=== PATIENT | male | born 1975 | race Hispanic/Latino ===

== ENCOUNTER 2023-03-29 12:09 | Emergency (ER) | payer BC ==
--- OUTSIDE RECORDS SUMMARY | 2023-03-29 12:11 | XMS REPORT | Continuity of Care Document ---
:1975 Author Organization [facility] t Address [address] [place] [address] [address] [place] [address] Care Team Providers Name Role Phone ANNETTE HERNANDEZ Primary Care Physician Unavailable Marlin Attending Clinician Unavailable RADIOLOGY Attending Clinician Unavailable Radiology Attending Clinician Unavailable JERSEY WANG Attending Clinician Unavailable Marlin Admitting Clinician Unavailable ANNETTE HERNANDEZ Admitting Clinician Unavailable Payers Payer Name Policy Type Policy Number Effective Date Expiration Date Tracie parker [employer] [facility] [id number] 2014 00:00:00 [employer] [id number] 2020 00:00:00 Problems Condition Condition Condition Status Onset Resolution Last Treating Co mments Source Name Details Category Date Date Treatment Clinician Date No known No known Disease Unive rs active active ity of problems problems [facility] Allergies, Adverse Reactions, Alerts Allergy Allergy Status Severity Reaction(s) Onset Inactive Treating Comm ents Source Name Type Date Date Clinician NO KNOWN Drug Active Univers ALLERGIE Class ity of S [facility] Social History Social Habit Start Date Stop Date Quantity Comments Source Tobacco use and 2021-05-26 2021-05-26 Never used [facility] exposure 00:00:00 00:00:00 [facility] Sex Ass[birth year] [facility] 00:00:00 00:00:00 [facility] Smoking Status Start Date Stop Date Source Never smoker [facility] Medications Ordered Filled Start Stop Current Ordering Indication Dosage Frequency Signature Comments Components Source Medication Medication Date Date Medication? Clinician (SIG) Name Name No known No Univers medications - ity of 20:35: [place] [facility] Procedures Procedure Date / Time Performing Clinician Source Performed [facility] PATIENT FINANCIAL 2022-04-12 18:42:09 [facility] NO SHOW OR MISSED 2022-04-12 18:41:50 Doctor Katiasscathy, [facility] APPOINTMENT POLICY [facility] ACKNOWLEDGEMENT NOTICE OF PRIVACY 2022-04-12 18:41:30 Doctor Unasscathy, Eduardo [facility] PRACTICES [facility] CONSENT/REFUSAL FOR 2022-04-12 18:41:07 Doctor Unassigned, Unive [facility] DIAGNOSIS AND TREATMENT [facility] ASSIGNMENT OF BENEFITS 2022-04-12 18:40:45 [facility] Encounters Start End Encounter Admission Attending Care Care Encounter Source Date/Time Date/Time Type Type Clinicians Facility Department ID 2022-04-29 2022-04-29 Outpatient Daniel_T VFP [id number] [id number] [facility] 12:45:00 12:45:00 [id number] Family Practic e 2022-04-12 2022-04-12 Outpatient R RADIOLOGY [facility] [id number] Univers 13:39:58 23:59:00 ity of [facility] 2022-04-12 2022-04-12 Hospital Radiology [facility] [id number] Univers 13:39:58 23:59:00 Encounter [place] [id number] ity [facility] [id number] [facility] [id number] [facility] [address] Branch 2022-04-12 2022-04-12 Outpatient R RADIOLOGY [facility] [id number] Univers 00:00:00 00:00:00 [id number] ity of [facility] 2021-05-26 2021-05-26 Outpatient R KATHLEEN, [facility] [id number] Univers 20:20:00 20:20:00 JERSEY montenegro o f [facility] Results This patient has no known results.
[2023-03-29 13:24] LABS: Absolute Lymphocytes (CBC) 2.1 K/uL (0.7-4.9); Lymphocytes % 32.1 % (15.3-44.8); MCV 84.2 fL (80-100); MPV 9.6 fL (7.6-11.3); RBC Red Blood Cell Count 5.34 M/uL (4.33-5.43)
[2023-03-29 13:28] LABS: Specific Gravity 1.016 (1.005-1.030); Urine Bilirubin NEGATIVE (Negative); Urine Blood Negative (Negative); Urine Clarity Clear (Clear); Urine Color Light-Yellow (Yellow); Urine Glucose NEGATIVE (Negative); Urine Protein NEGATIVE (Negative); Urine Urobilinogen Normal (Normal)
[2023-03-29 13:40] LABS: Albumin 4.4 g/dL (3.4-5.0); Bilirubin Total 0.3 mg/dL (0.2-1.0); Protein, Total 8.3 g/dL (6.4-8.2)
--- NOTE | 2023-03-29 13:41 | RAD REPORT ---
EXAM DESCRIPTION: CTSpine Lumbar Wo Con03/29/2023 1:24 pm CLINICAL HISTORY: Back pain COMPARISON: None TECHNIQUE: Computed axial tomography lumbar spine was obtained with coronal and sagittal reconstruct ion. All CT scans are performed using dose optimization technique as appropriate and may include automated exposure control or mA/KV adjustment according to patient size. FINDINGS: No fracture is seen. No dislocation is noted. Small right posterolateral herniated disc is suspected L3-4 Stranding is present within neural foramina bilaterally T11-12 IMPRESSION: Stranding is present within the neural foramina bilaterally T11-12. This is a nonspecifi c finding. If the patient has clinical symptoms to suggest pathology in this region then MRI with con trast would be recommended. Small right posterior-lateral herniated disc L3-4 suspected
[2023-03-29] MEDS ORDERED: KETOROLAC 30 MG/ML INJ ONE (13:55)
[2023-03-29] MEDS ORDERED: ONDANSETRON 4 MG/2 ML VIAL ONE (13:55)
[2023-03-29] MEDS ORDERED: NA CHLORIDE 0.9% 1,000 ML ONE (13:55)
[2023-03-29] MEDS ORDERED: FENTANYL CITR 100 MCG/2 ML ONE (14:10)
[2023-03-29] MEDS ORDERED: dexAMETHasone 10 MG/ML VIAL ONE (14:11)
[2023-03-29] MEDS ORDERED: DIAZEPAM 10 MG/2 ML INJ SYRINGE ONE (14:11)
--- NOTE | 2023-03-29 16:39 | RAD REPORT ---
EXAM DESCRIPTION: MRI - Lumbar Spine Wo Con - 03/29/2023 4:28 pm CLINICAL HISTORY: Back pain/radiculopathy COMPARISON: CT March 29, 2023 TECHNIQUE: Sagittal T1, T2 and STIR weighted sequences were obtained. Axial T1 and T2 sequences were obtained through the lumbar disc levels. FINDINGS: L1-2, L2-3, L4-5 and L5-S1 unremarkable Disc desiccation L3-4. Small right paracentral subligamentous disc herniation thecal sac measures 9.5 millimeters. Neural foramina patent No abnormal signal within the bones IMPRESSION: Small right subligamentous paracentral disc herniation L3-4
--- NOTE | 2023-03-29 16:48 | RAD REPORT ---
EXAM DESCRIPTION: MRI - Thoracic Spine W/Wo Contr - 03/29/2023 4:28 pm CLINICAL HISTORY: Back pain/radiculopathy COMPARISON: CT 03/29/2023 TECHNIQUE: Sagittal T1 weighted, T2 weighted and T2 STIR weighted sequences were obtained. Axial T2 weighted images were obtained through each disc level. FINDINGS: Minimal disc bulge T6-7 No disc herniation The thecal sac is normal caliber. The neural foramina are patent. The spinal cord is normal caliber and signal. No abnormal signal within the bones is noted. T11-12 neural foramina appear unremarkable. No abnormal enhancement noted IMPRESSION: Minimal spondylosis T6-7
--- NOTE | 2023-03-29 17:36 | EDPHYS ---
Physician Documentation [facility] Name: Ger Ham Age: 47 yrs Sex: Male : 1975 Arrival Date: 03/29/2023 Time: 12:09 Bed 20 Private MD: ED Physician Maury Blackburn HPI: 03/29 13:59 This 47 yrs old Male presents to ER via Ambulatory with complaints of Low Back trevor Pain. 13:59 The patient presents with pain that is acute, and decreased range of motion. The trevor symptoms are located in the low back, lumbar area. The pain does not radiate. The problem was sustained when lifting boxes. Onset: The symptoms/episode began/occurred 2 day(s) ago. Modifying factors: The patient symptoms are alleviated by remaining still, the patient symptoms are aggravated by any movement, bending, lifting, standing. Associated signs and symptoms: The patient has no apparent associated signs or symptoms. Severity of symptoms: At their worst the symptoms were moderate, in the emergency department the symptoms are unchanged. The patient has experienced similar episodes in the past, a few times. Historical: - Allergies: 12:40 No Known Allergies; iw - Home Meds: 12:40 atorvastatin 10 mg oral tablet daily [Active]; iw - PMHx: 12:40 Hypercholesterolemia; iw - PSHx: 12:40 None; iw - Immunization history:: Adult Immunizations up to date. - Social history:: Smoking status: . ROS: 14:03 Constitutional: Negative for fever, chills, and weight loss, Eyes: Negative for injury, trevor pain, redness, and discharge, ENT: Negative for injury, pain, and discharge, Neck: Negative for injury, pain, and swelling, Cardiovascular: Negative for chest pain, palpitations, and edema, Respiratory: Negative for shortness of breath, cough, wheezing, and pleuritic chest pain, Abdomen/GI: Negative for abdominal pain, nausea, vomiting, diarrhea, and constipation, : Negative for injury, bleeding, discharge, and swelling, MS/Extremity: Negative for injury and deformity, Skin: Negative for injury, rash, and discoloration, Neuro: Negative for headache, weakness, numbness, tingling, and seizure, Psych: Negative for depression, anxiety, suicide ideation, homicidal ideation, and hallucinations, Allergy/Immunology: Negative for hives, rash, and allergies, Endocrine: Negative for neck swelling, polydipsia, polyuria, polyphagia, and marked weight changes, Hematologic/Lymphatic: Negative for swollen nodes, abnormal bleeding, and unusual bruising. 14:03 Abdomen/GI: Positive for 14:03 Back: Positive for decreased range of motion, pain at rest, pain with movement, of the lumbar area. Exam: 14:03 Constitutional: This is a well developed, well nourished patient who is awake, alert, trevor and in no acute distress. Head/Face: Normocephalic, atraumatic. Eyes: Pupils equal round and reactive to light, extra-ocular motions intact. Lids and lashes normal. Conjunctiva and sclera are non-icteric and not injected. Cornea within normal limits. Periorbital areas with no swelling, redness, or edema. ENT: Nares patent. No nasal discharge, no septal abnormalities noted. Tympanic membranes are normal and external auditory canals are clear. Oropharynx with no redness, swelling, or masses, exudates, or evidence of obstruction, uvula midline. Mucous membranes moist. Neck: Trachea midline, no thyromegaly or masses palpated, and no cervical lymphadenopathy. Supple, full range of motion without nuchal rigidity, or vertebral point tenderness. No Meningismus. Chest/axilla: Normal chest wall appearance and motion. Nontender with no deformity. No lesions are appreciated. Cardiovascular: Regular rate and rhythm with a normal S1 and S2. No gallops, murmurs, or rubs. Normal PMI, no JVD. No pulse deficits. Respiratory: Lungs have equal breath sounds bilaterally, clear to auscultation and percussion. No rales, rhonchi or wheezes noted. No increased work of breathing, no retractions or nasal flaring. Abdomen/GI: Soft, non-tender, with normal bowel sounds. No distension or tympany. No guarding or rebound. No evidence of tenderness throughout. Male : Normal genitalia with no discharge or lesions. Skin: Warm, dry with normal turgor. Normal color with no rashes, no lesions, and no evidence of cellulitis. MS/ Extremity: Pulses equal, no cyanosis. Neurovascular intact. Full, normal range of motion. Neuro: Awake and alert, GCS 15, oriented to person, place, time, and situation. Cranial nerves II-XII grossly intact. Motor strength 5/5 in all extremities. Sensory grossly intact. Cerebellar exam normal. Normal gait. Psych: Awake, alert, with orientation to person, place and time. Behavior, mood, and affect are within normal limits. 14:03 Back: pain, that is mild, that is moderate, ROM is painful, decreased, normal spinal alignment noted, CVA tenderness, is absent, vertebral tenderness, is not appreciated, muscle spasm, is appreciated in the left low back, left mid back, right mid back and right low back. Vital Signs: 12:39 BP 129 / 89; Pulse 60; Resp 16; Temp 98.4; Pulse Ox 100% on R/A; Weight 72.57 kg; iw Height 5 ft. 2 in. ; Pain 8/10; 14:25 BP 146 / 80; Pulse 60; Resp 18; Pulse Ox 99% on R/A; ld1 15:31 BP 129 / 82; Pulse 59; Resp 18; Pulse Ox 99% on R/A; ld1 16:49 BP 146 / 94; Pulse 63; Resp 18; Pulse Ox 97% on R/A; ld1 17:55 BP 132 / 58; Pulse 65; Resp 18; Pulse Ox 98% on R/A; ld1 12:39 Body Mass Index 29.26 (72.57 kg, 157.48 cm) iw 12:39 Pain Scale: Adult iw MDM: 12:20 Patient medically screened. trevor 14:04 Differential diagnosis: arthritis, strain, fracture, sciatica, contusion, Herniated trevor disc. Data reviewed: vital signs, nurses notes, lab test result(s), radiologic studies, CT scan. Consideration of Admission/Observation Escalation of care including admission/observation considered. I considered the following discharge prescriptions or medication management in the emergency department Medications were administered in the Emergency Department. See MAR. Test considered but Not performed: MRI: no mri , will do as out pat. Historians other than the Patient: Spouse/Significant Other: . Care significantly affected by the following chronic conditions: high cholesterol. Counseling: I had a detailed discussion with the patient and/or guardian regarding: the historical points, exam findings, and any diagnostic results supporting the discharge/admit diagnosis, lab results, radiology results, the need for outpatient follow up, for definitive care, a family practitioner, a neurologist. 03/29 12:21 Order name: CBC with Diff; Complete Time: 13:47 [facility] 03/29 12:21 Order name: Comprehensive Metabolic Panel; Complete Time: 13:47 trevor 03/29 12:21 Order name: Urinalysis w/ reflexes; Complete Time: 13:47 [facility] 03/29 14:04 Order name: CRP; Complete Time: 17:51 trevor 03/29 12:21 Order name: CT Lumbar Spine Wo Con; Complete Time: 13:47 trevor 03/29 14:17 Order name: MRI Lumbar Spine wo Con; Complete Time: 17:51 kj 03/29 15:44 Order name: Thoracic Spine W/Wo Contr; Complete Time: 17:51 EDMS Administered Medications: 14:25 Drug: NS 0.9% IV 1000 ml Route: IV; Rate: 1 bolus; Site: right antecubital; ld1 14:25 Drug: Ketorolac IVP 30 mg Route: IVP; Site: right antecubital; ld1 14:25 Drug: Ondansetron IVP 4 mg Route: IVP; Site: right antecubital; ld1 14:25 Drug: Diazepam PO 10 mg Route: PO; ld1 14:25 Drug: Decadron - Dexamethasone IVP 10 mg Route: IVP; Site: right antecubital; ld1 14:25 Not Given (Patient Refused): fentaNYL (PF) IVP 50 mcg IVP once ld1 Disposition Summary: 03/29/23 17:35 Discharge Ordered Location: Home trevor Problem: new trevor Symptoms: have improved trevor Condition: Stable trevor Diagnosis - Low back pain trevor - Other injury of muscle, fascia and tendon of lower back trevor - Abnormal findings on diagnostic imaging of other specified body structures - T11-12 trevor STRANDIND BILATERAL NEURAL FORAMINA, NEEDS MRI WITH IV CONTRAST, SMALL POST-LAT HERNIATEDC DISC L3-4 Followup: trevor - With: Private Physician - When: 2 - 3 days - Reason: Recheck today's complaints, Continuance of care, Re-evaluation by your physician Followup: trevor - With: - When: 2 - 3 days - Reason: Recheck today's complaints, Re-evaluation by your physician Discharge Instructions: - Discharge Summary Sheet trevor - Acute Back Pain, Adult trevor - Chronic Back Pain trevor - Musculoskeletal Pain trevor - Back Injury Prevention, [id number] trevor Forms: - Medication Reconciliation Form trevor - Thank You Letter trevor - Antibiotic Education trevor - Prescription Opioid Use [facility] Prescriptions: - acetaminophen-codeine 300-30 mg Oral tablet - take 2 tablet by ORAL route every 6 hours as needed for pain; 24 tablet; trevor Refills: 0, Product Selection Permitted - dexamethasone 2 mg Oral tablet - take 1 tablet by ORAL route 2 times per day; 10 tablet; Refills: 0, Product trevor Selection Permitted - Valium 5 mg Oral Tablet - take 1 tablet by ORAL route every 8 hours As needed; 20 tablet; Refills: 0, [facility] Product Selection Permitted - Diclofenac Sodium 75 mg Oral Tablet Sustained Release - take 1 tablet by ORAL route 2 times per day; 30 tablet; Refills: 0, Product trevor Selection Permitted Signatures: Dispatcher [employer] EDMS Maury Blackburn MD MD cha Williams, Irene, RN RN iw Lindsay Sawyer RN RN ld1 Corrections: (The following items were deleted from the chart) 14:35 14:27 Thoracic Spine W/o Cont ordered. EDMS EDMS 15:44 14:31 Thoracic Spine W/Con ordered. EDMS EDMS
--- NOTE | 2023-03-29 17:36 | ER ---
Nurse's Notes [facility] Name: Ger Ham Age: 47 yrs Sex: Male : 1975 Arrival Date: 03/29/2023 Time: 12:09 Bed 20 Private MD: Diagnosis: Low back pain;Other injury of muscle, fascia and tendon of lower back;Abnormal findings on diagnostic imaging of other specified body [id number] STRANDIND BILATERAL NEURAL FORAMINA, NEEDS MRI WITH IV CONTRAST, SMALL POST-LAT HERNIATEDC DISC L3-4 Presentation: 03/29 12:39 Chief complaint: Patient states: lower back pain since yesterday , pivoted and felt it iw go out, feels different than his sciatica. Coronavirus screen: At this time, the client does not indicate any symptoms associated with coronavirus-19. Ebola Screen: Patient negative for fever greater than or equal to 101.5 degrees Fahrenheit, and additional compatible Ebola Virus Disease symptoms Patient denies exposure to infectious person. Patient denies travel to an Ebola-affected area in the 21 days before illness onset. No symptoms or risks identified at this time. Initial Sepsis Screen: Does the patient meet any 2 criteria? No. Patient's initial sepsis screen is negative. Does the patient have a suspected source of infection? No. Patient's initial sepsis screen is negative. Risk Assessment: Do you want to hurt yourself or someone else? Patient reports no desire to harm self or others. Onset of symptoms was March 28, 2023. 12:39 Method Of Arrival: Ambulatory iw 12:39 Acuity: LEODAN 3 iw Historical: - Allergies: 12:40 No Known Allergies; iw - Home Meds: 12:40 atorvastatin 10 mg oral tablet daily [Active]; iw - PMHx: 12:40 Hypercholesterolemia; iw - PSHx: 12:40 None; iw - Immunization history:: Adult Immunizations up to date. - Social history:: Smoking status: . Screenin:31 [facility] ED Fall Risk Assessment (Adult) History of falling in the last 3 months, ld1 including since admission No falls in past 3 months (0 pts). Abuse screen: Denies threats or abuse. Denies injuries from another. Nutritional screening: No deficits noted. Tuberculosis screening: No symptoms or risk factors identified. Assessment: 15:31 General: Appears in no apparent distress. comfortable, Behavior is calm, cooperative, ld1 appropriate for age. Pain: Complains of pain in back Pain does not radiate. Pain currently is 6 out of 10 on a pain scale. Quality of pain is described as throbbing. Neuro: Level of Consciousness is awake, alert, obeys commands, Oriented to person, place, time, situation. Cardiovascular: Capillary refill < 3 seconds Patient's skin is warm and dry. Respiratory: Airway is patent Respiratory effort is even, unlabored. GI: Abdomen is flat, non-distended. : No signs and/or symptoms were reported regarding the genitourinary system. EENT: No signs and/or symptoms were reported regarding the EENT system. Derm: No signs and/or symptoms reported regarding the dermatologic system. Musculoskeletal: No signs and/or symptoms reported regarding the musculoskeletal system. Vital Signs: 12:39 BP 129 / 89; Pulse 60; Resp 16; Temp 98.4; Pulse Ox 100% on R/A; Weight 72.57 kg; iw Height 5 ft. 2 in. ; Pain 8/10; 14:25 BP 146 / 80; Pulse 60; Resp 18; Pulse Ox 99% on R/A; ld1 15:31 BP 129 / 82; Pulse 59; Resp 18; Pulse Ox 99% on R/A; ld1 16:49 BP 146 / 94; Pulse 63; Resp 18; Pulse Ox 97% on R/A; ld1 17:55 BP 132 / 58; Pulse 65; Resp 18; Pulse Ox 98% on R/A; ld1 12:39 Body Mass Index 29.26 (72.57 kg, 157.48 cm) iw 12:39 Pain Scale: Adult iw ED Course: 12:13 Patient arrived in ED. im 12:20 Maury Blackburn MD is Attending Physician. trevor 12:40 Triage completed. iw 12:41 Arm band placed on. iw 13:23 Urinalysis w/ reflexes Sent. mm9 13:23 Comprehensive Metabolic Panel Sent. mm9 13:24 Patient has correct armband on for positive identification. Bed in low position. Call mm9 light in reach. Side rails up X 1. Adult w/ patient. Warm blanket given. Pulse ox on. NIBP on. 13:24 CBC with Diff Sent. mm9 13:24 Initial lab(s) drawn, by me, sent to lab. Urine collected: clean catch specimen, mm9 cloudy. Inserted saline lock: 22 gauge in right antecubital area, using aseptic technique. Blood collected. 13:26 CT Lumbar Spine Wo Con In Process Unspecified. EDMS 13:45 Lindsay Sawyer, RN is Primary Nurse. ld1 14:05 CRP Sent. iw 15:31 No provider procedures requiring assistance completed. ld1 16:30 MRI Lumbar Spine wo Con In Process Unspecified. EDMS 16:30 Thoracic Spine W/Wo Contr In Process Unspecified. EDMS 17:35 Jorge Son MD is Referral Physician. [facility] 17:55 IV discontinued, intact, bleeding controlled, No redness/swelling at site. ld1 Administered Medications: 14:25 Drug: NS 0.9% IV 1000 ml Route: IV; Rate: 1 bolus; Site: right antecubital; ld1 14:25 Drug: Ketorolac IVP 30 mg Route: IVP; Site: right antecubital; ld1 14:25 Drug: Ondansetron IVP 4 mg Route: IVP; Site: right antecubital; ld1 14:25 Drug: Diazepam PO 10 mg Route: PO; ld1 14:25 Drug: Decadron - Dexamethasone IVP 10 mg Route: IVP; Site: right antecubital; ld1 14:25 Not Given (Patient Refused): fentaNYL (PF) IVP 50 mcg IVP once ld1 Medication: 15:31 VIS not applicable for this client. ld1 Outcome: 17:35 Discharge ordered by . [facility] 17:55 Discharged to home ambulatory, with family. ld1 17:55 Condition: stable 17:55 Discharge instructions given to patient, family, Instructed on discharge instructions, follow up and referral plans. medication usage, Demonstrated understanding of instructions, follow-up care, medications, Prescriptions given X 4. 17:55 Patient left the ED. ld1 Signatures: Dispatcher [employer] EDOR Maury Blackburn MD MD cha Williams, Irene, RN RN iw Lindsay Sawyer, ASHA RN ld1 Rema Kinsey mm9 Iesha Skinner
[2023-03-29 18:37] VITALS: TEMP 98.4
[2023-03-29 18:42] VITALS: BP 132/58; O2SAT 98
== END 2023-03-29 17:55 | disposition home or self-care (01) ==
LOC: ER 12:09
DX: S39.092A Other injury of muscle, fascia and tendon of lower back, initial encounter (principal); M51.26 Other intervertebral disc displacement, lumbar region; E78.00 Pure hypercholesterolemia, unspecified
CPT/HCPCS: 85025; 36415; 81003; 80053; 86140; 72131; 72148; 72157; 96375; 96374; 99285; A9577; J3360; J3010; J1100; J2405; J7030